=== PATIENT | female | born 1985 | race Two or more races ===

== ENCOUNTER 2018-07-09 16:30 | Emergency (ER) | payer MEDICAID ==
[~2018-07-09] VITALS: Ht 154.9 cm; Wt 97.5 kg
[2018-07-09 16:30] VITALS: BP 137/69
[2018-07-09] MEDS ORDERED: ACETAMINOPHEN ES 500 MG TABLET PO ONE (17:30)
[2018-07-09] MEDS ORDERED: ACETAMINOPHEN ES 500 MG TABLET ONE (17:37)
== END 2018-07-09 18:24 | disposition home or self-care (01) ==
LOC: ER 16:32
DX: S62.625A Displaced fracture of middle phalanx of left ring finger, initial encounter for closed fracture (principal); Y04.0XXA Assault by unarmed brawl or fight, initial encounter; Y93.89 Activity, other specified; Y92.89 Other specified places as the place of occurrence of the external cause; Y99.8 Other external cause status
CPT/HCPCS: 29130; 73130; 99284; A4606; Z7610

== ENCOUNTER 2020-03-26 23:01 | Emergency (ER) | payer MEDICAID ==
[~2020-03-26] VITALS: Ht 154.9 cm; Wt 90.7 kg
[2020-03-26 23:12] VITALS: BP 150/98
== END 2020-03-26 23:19 | disposition home or self-care (01) ==
LOC: ER 23:03
DX: S80.01XA Contusion of right knee, initial encounter (principal); E11.9 Type 2 diabetes mellitus without complications; W18.39XA Other fall on same level, initial encounter; Y93.89 Activity, other specified; Y92.89 Other specified places as the place of occurrence of the external cause; Y99.8 Other external cause status

== ENCOUNTER 2022-08-25 18:55 | Emergency (ER) | payer MEDICAID ==
[~2022-08-25] VITALS: Ht 154.9 cm; Wt 88.9 kg
--- NOTE | 2022-08-25 19:17 | NUR ---
BIBS C/O TINGLING TO BILATERAL HANDS, FACE, AND R LEG WELL L LIP DROOP. PT AWAKE AND ALERT X4 BREATHING UNLABORED - ARM/LEG DRIFT 5/5 STRENGTH -HEADACHE. LKW 1400. PT AMBULATORY WITH STEADY GAIT ASSISTED TO ER BED 10 CHANGED INTO GOWN AND PLACED ON MONITOR. V/S WNL.
--- NOTE | 2022-08-25 19:18 | NUR ---
18G IV ESTABLISHED AT [facility]
--- NOTE | 2022-08-25 19:19 | NUR ---
poc bg [phone]
--- NOTE | 2022-08-25 19:21 | NUR ---
EMT AT [facility] FOR EKG
[2022-08-25 19:41] LABS: CALCIUM, SERUM 8.8 mg/dL (8.5-10.1); CARBON DIOXIDE 26 mmol/L (21-32); CHLORIDE 101 mmol/L (98-107); CREATININE 0.7 mg/dL (0.6-1.3); GLUCOSE 228 mg/dL (74-106); POTASSIUM 3.6 mmol/L (3.5-5.1); SODIUM SERUM 136 mmol/L (136-145); UREA NITROGEN, BLOOD 14 mg/dL (7-18)
[2022-08-25 19:54] LABS: BASOPHILS # (AUTO) 0.1 K/uL (0.0-0.2); BASOPHILS % (AUTO) 0.7 % (0.0-2.0); EOSINOPHILS % (AUTO) 1.8 % (0.0-6.0); HEMATOCRIT 41 % (33-45); HEMOGLOBIN 14.1 g/dL (11.5-14.8); LYMPHOCYTES # (AUTO) 3.2 K/uL (0.8-4.8); LYMPHOCYTES % (AUTO) 35.9 % (20.0-44.0); MEAN CORPUSCULAR HGB CONC 35 g/dl (31.0-36.0); MEAN CORPUSCULAR VOLUME 87 fL (82-100); MONOCYTES # (AUTO) 0.4 K/uL (0.1-1.30); MONOCYTES % (AUTO) 4.9 % (2.0-12.0); NEUTROPHILS # (AUTO) 5.1 K/uL (1.8-8.9); NEUTROPHILS % (AUTO) 56.7 % (43.0-81.0); PLATELET COUNT (AUTO) 258 K/uL (150-450); RED BLOOD CELL COUNT(AUTO) 4.67 MIL/uL (4.0-5.2)
[2022-08-25] MEDS ORDERED: VALA500T40 PO (21:07)
[2022-08-25] MEDS ORDERED: PRED50TA PO (21:07)
--- NOTE | 2022-08-25 21:32 | NUR ---
Patient discharged to home in stable condition. Written and verbal after care instructions given. Patient verbalizes understanding of instruction.IV removed. Catheter intact and site benign. Pressure and 4x4 applied to site. No bleeding noted.
[2022-08-25 21:37] VITALS: BP 130/68
== END 2022-08-25 21:37 | disposition home or self-care (01) ==
LOC: ER 19:00
DX: G51.0 Bell's palsy (principal); E11.9 Type 2 diabetes mellitus without complications
CPT/HCPCS: 36415; 70450-TC; 71045-TC; 80048-TC; 82962-TC; 84484-TC; 85025-TC; 85730-TC

== ENCOUNTER 2025-11-13 09:17 | Emergency (ER) | payer MEDICAID, OTHER ==
[~2025-11-13] VITALS: Ht 157.5 cm; Wt 87.1 kg
[~2025-11-13 09:17] MED LIST: PRED50TA PO; VALA500T40 PO
[2025-11-13] MEDS ORDERED: CYCLOBENZAPRINE 10 MG TABLET ONE (09:46)
[2025-11-13] MEDS ORDERED: KETOROLAC TROMETHAMINE INJ 30 MG/ML VIAL ONE (09:46)
[2025-11-13] MEDS: KETOROLAC TROMETHAMINE INJ 30 MG/ML VIAL IM ONE (10:03)
[2025-11-13] MEDS: CYCLOBENZAPRINE 10 MG TABLET PO ONE (10:03)
[2025-11-13] MEDS ORDERED: KETO10TA2 PO (11:00)
[2025-11-13] MEDS ORDERED: oxyCODONE/APAP (5/325 MG) 1 UDTAB TABLET ONE (11:07)
[2025-11-13] MEDS: oxyCODONE/APAP (5/325 MG) 1 UDTAB TABLET PO ONE (11:10)
[2025-11-13 11:15] VITALS: BP 119/74; TEMP 98.3; O2SAT 98
== END 2025-11-13 11:15 | disposition home or self-care (01) ==
LOC: ER 09:23
DX: S32.019A Unspecified fracture of first lumbar vertebra, initial encounter for closed fracture (principal); E11.9 Type 2 diabetes mellitus without complications; Z79.52 Long term (current) use of systemic steroids; Z79.624 Long term (current) use of inhibitors of nucleotide synthesis; X58.XXXA Exposure to other specified factors, initial encounter; Y93.89 Activity, other specified; Y92.89 Other specified places as the place of occurrence of the external cause; Y99.8 Other external cause status
CPT/HCPCS: 99285; 74176; 96372; J1885